=== PATIENT | male | born 1940 ===

== ENCOUNTER → 2018-11-29 | Outpatient (CLI) | payer OTHER ==
[~2018-11-29] VITALS: Ht 182.9 cm; Wt 97.8 kg
[~2018-11-29] MED LIST: AMLODIPINE BESY10 MG PO; ASPIR 8181 MG PO; FLUZONE HI180 MCG/06 IM; IBUPROFEN 200200 M1 PO; LISINOPRIL-HCT1 EAC2 PO; SIMVASTATIN40 MG PO; TYLENOL325 MG PO; VITAMIN B COMP1 EACH PO; ZYRTEC10 M5 PO
--- NOTE | ~2018-11-29 | HPC ---
[facility] [address] [place] [address] PAIN MANAGEMENT CONSULTATION Name: OLIVIER STARR [facility] [id number] Admission: 11/29/18 ������������������ Attend Phys: Saurav Beal DO Discharge: ������������������ Date of : 39 Report #: [id number] THIS REPORT FOR: //name// CC: [facility] physician/PCP Saurav Hurtado MD CHIEF COMPLAINT: Axial back pain. HISTORY OF PRESENT ILLNESS: As you know, the patient is a 78-year-old male who has had extensive surgical treatment to the lumbar spine. He has had decompressive laminectomies from L2 through L5 and a fusion from L4-L5. Despite these surgeries, the patient continues to experience axial back pain. There are some concerns the patient is suffering from facet arthropathy of the lumbar region. He does not report any neuropathic component to his symptoms. There is no radiation of symptoms beyond the axial back except for in a horizontal fashion, correlating to a distribution of the quadratus lumborum. He comes to us today with imaging prior to his L4-L5 fusion, which does show some arthritic changes in the lumbar spine at that time, moderate level at this L5-S1. He returns to discuss treatment options for his axial back pain, unresolved by Surgery. The patient indicates pain began 04/02/2018. No inciting injury or trauma. The patient indicates today pain is constant, describes the pain as aching, places current pain score 5/10, daily average of 4-5/10, worst pain has been is 8/10. The patient states that weather exacerbate symptoms. Heat and cold compresses. Rest, relaxation and anti-inflammatories tend to improve pain. He has been referred to our service to discuss treatment options for axial back pain, unresolved by multiple surgical procedures. PAST MEDICAL HISTORY: 1. Diabetes mellitus type 2. 2. Hypertension. 3. History of nephrolithiasis. 4. Degenerative joint disease. 5. History of prostate cancer. 6. Dyslipidemia. 7. Seasonal allergies. PAST SURGICAL HISTORY: 1. Cholecystectomy. 2. Prostatectomy. SOCIAL HISTORY: The patient denies tobacco, IV or illicit drug use. Admits to approximately 1 alcoholic beverage per week. He is retired. He is not working. He has been out of work force for nearly 10 years. He is not receiving workmen's compensation nor is he trying to obtain disability benefits. He is [address] [address] PAIN MANAGEMENT CONSULTATION Name: OLIVIER STARR Room #: REG Jennifer Gore#: [id number] Admission: 11/29/18 ������������������ Attend Phys: Saurav Beal DO Discharge: ������������������ Date of : 39 Report #: [id number] not in litigation in regards to pain. He is accompanied by his who is present in room today. ALLERGIES: PENICILLIN. CURRENT MEDICATIONS: Vitamin B complex 1 tab per day, ibuprofen 400 mg 3 times a day, aspirin 81 mg per day, acetaminophen 325 mg b.i.d., cetirizine 10 mg per day, amlodipine 10 mg per day, simvastatin 40 mg per day, and lisinopril/hydrochlorothiazide 20/25 mg dose 1 tab p.o. every day. IMAGING: CT lumbar spine obtained 11/09/2017 shows L1-L2 unremarkable. L2-L3 shows mild diffuse disk bulge, prominent bilateral ligamentum flavum hypertrophy, central canal is narrowed to 7 mm, bilateral foraminal encroachment and facet spurring. L3-L4, prominent spurring greater on the right. Diffuse bulging of the disk, ligamentum flavum and facet hypertrophy. Canal measures 12 mm. L5-S1 shows no focal disk protrusion, central canal is maintained, facet spurring degenerative changes at the L5-S1 level noted to be moderate. PQRS: The patient has no known osteoarthritic changes of the lumbar spine, bilateral hips and bilateral knees. No rheumatoid arthritis. He is placing pain intensity of 5/10. He is not a fall risk, has not have fallen in last few months. He is not on blood thinners. He is treated for hypertension. He is not on opioids, but he does have a low opioid addiction potential. He is placing pain impact score at approximately 35/70 indicating moderate interference of daily activities secondary to pain. PHYSICAL EXAMINATION: VITAL SIGNS: Blood pressure is 137/83, pulse 81, respiratory rate 16 and unlabored, the patient is 99% on room air, height 6 feet tall, weight 215.6 pounds, and BMI calculated 29.2. GENERAL: Well-developed, well-nourished, well-hydrated 78-year-old male appearing stated age, placing current pain score around 5/10. HEENT: Normocephalic, atraumatic. Pupils equal, round and reactive to light. Extraocular muscles are intact. Sclerae are nonicteric without injection. NEUROLOGIC: Cranial nerves 2-12 grossly intact. Speech is fluent. The patient deemed an excellent historian. LUNGS: Clear, no wheeze, rhonchi or rales. CARDIOVASCULAR: Regular. No appreciable gallop, no rub. ABDOMEN: Soft, nontender, nondistended, normoactive bowel sounds. EXTREMITIES: Show no clubbing, no cyanosis, and no edema. MUSCULOSKELETAL: Lower extremity strength appears symmetrical 5/5. There are well-healed surgical scars of the lumbar region. Palpatory tenderness is noted over the facet joints at L5-S1 bilaterally, right greater than left. Lower extremity strength is symmetrical, but deconditioned 5/5, intact to light touch from L1 through S2 dermatomes. Seated straight leg raising is negative. Supine straight leg raising is negative. Modified Gaenslen's is positive for axial low [facility] [address] [place] [address] PAIN MANAGEMENT CONSULTATION Name: OLIVIER STARR Room #: REG [facility] Rayna.#: [id number] Admission: 11/29/18 ������������������ Attend Phys: Saurav Beal DO Discharge: ������������������ Date of : 39 Report #: [id number] back pain, moderate restriction to motion. Muscle bulk and tone equal and symmetrical in lower extremities. Ankle clonus is negative. Babinski is negative. Lumbar provocation testing is all met with increasing pain. ASSESSMENT: 1. Lumbosacral spondylosis without radiculopathy. 2. Post-laminectomy syndrome. 3. Myofascial pain. 4. Chronic intractable pain. PLAN: Based on today's physical exam and history, the patient provides the description that the patient uses in regards to pain as well as location of symptoms and the provocating factors, likely source of the patient's pain is the facet joints of the lumbar region. It is not unusual for patients who have undergone a fusion at a specific level, removing the motion component of that segment, which then leads to rapid development of arthritic changes in the joints above or below that fusion. The patient is fused at the L4-L5 level, which removes a significant motion segment and then has to transfer that motion to the lower facet joints, and I believe this is the source of the patient's symptoms today. He does not show any distribution of symptoms in a classic dermatomal distribution nor does his descriptors indicate a neuropathic issue. We discussed this with the patient today. After a long discussion of the potential source of symptoms, we discussed treatment options, which are as follows: 1. We discussed physical therapy, stretching exercises and core strengthening techniques. I do feel this would be in a significant component of treatment and needs to be performed on a daily basis. We discussed medication management, escalating nonsteroidal anti-inflammatory medications for baseline pain control with the addition of a possible low dose opioids understanding that this is not a long-term therapy. We discussed intra-articular facet injections, medial branch nerve blocks and radiofrequency lesioning as a treatment course to address facet arthropathy and ultimately we discussed surgical options. After reviewing the risks and benefits of all the proposed treatment options, the patient chose to move forward with intra-articular facet injections. 2. The patient was advised risks and benefits of intra-articular facet injections. These risks include but are not necessarily limited to bleeding, bruising, infection, worsening pain, no relief of pain, also risk of temporary or permanent muscle weakness, temporary or permanent nerve damage, possible paralysis and . The patient states he understood and wished to proceed. 3. No medication changes made at today's visit. The patient will continue current medical therapy as previously prescribed. 4. We will see the patient back in followup visit in approximately 3 weeks. At that time, review the efficacy of these intra-articular facet injections to determine if repeating facet injections would be recommended or looking towards medial branch nerve blocks and radiofrequency lesioning. [address] [address] PAIN MANAGEMENT CONSULTATION Name: OLIVIER STARR Room #: REG CLI Sofía#: [id number] Admission: 11/29/18 ������������������ Attend Phys: Saurav Beal DO Discharge: ������������������ Date of : 39 Report #: [id number] 5. We wish to thank Dr. Hurtado for the referral of the patient to our clinic. We will keep you apprised of his response to treatment for facet arthropathy pain. Again, we wish to thank you for the opportunity to see the patient in consultation. DESCRIPTION OF PROCEDURE: Bilateral L5-S1 intra-articular facet injections under fluoroscopic guidance. This is the first procedure of the first series that the patient is undergoing. After obtaining written consent, the patient was taken back to the fluoroscopy suite and placed in a prone position with a pillow under the abdomen to decrease the lumbar lordosis and to facilitate needle entry into the facet joints. The skin overlying the lumbosacral area was prepped and draped in an aseptic fashion. AP and lateral fluoroscopic imaging was obtained. Optimal position of the fluoroscope occurred when the joint line was first visualized. The facet joints were identified radiographically directed adjacent to the superior articular process of the caudad vertebrae. The skin overlying the target site(s) of injection was anesthetized using 3 mL of 1% lidocaine. A 22 gauge 3.5 inch spinal needle with a bent tip was advanced towards the L5-S1 facet joint(s) on the right side under fluoroscopic guidance. The firm posterior capsule had its characteristic feel and the needle was advanced a few additional millimeters beyond the joint capsule into the joint space, but not into the articular cartilage. After the joint space was entered and aspiration was negative for heme or CSF, 0.2 mL of Omnipaque was injected demonstrating a characteristic facet arthrogram. After negative aspiration for heme or CSF, 2 mL of solution containing 2 mL of 40 mg/mL 80 mg total of triamcinolone and 2 mL of bupivacaine 0.5% was slowly injected at each of 2 facet(s). The needle(s) was then removed. There were no apparent complications. The patient tolerated the procedure well and was carefully escorted to the recovery room in stable condition. The VAS was 5/10 before the procedure and 0/10 ten minutes after the procedure. After meeting discharge criteria, the patient was discharged home. ��������������������������������������������� ���������������������������������������� By: ��������������������������������������������� 0823 [id number] Saurav Beal DO /nt
[2018-11-29 13:05] VITALS: BP 137/83
--- NOTE | 2018-11-29 13:21 | NUR ---
Pain Clinic Assessment: 1. History of Osteoarthritis: History of Rheumatoid Arthritis: 2. Height: 6 ft. 0 in. 182.9 cm. Weight: 215.6 lb. oz. 97.796 kg. Patient's BMI: 29.2 3. Vital Signs: BP: 137/83 Pulse: 81 Resp: 16 Temp: 02 Sat: 99 ECG Mon: 4. Pain Intensity: 5 5. Fall Risk: Dizziness: N Needs help standing or walking: N Fallen in the last 3 months: N Fall risk comments: 6. Patient on Blood Thinner: None 7. History of Hypertension: Y 8. Opioid Therapy greater than 6 weeks: N Opiate Contract Signed: 9. Risk Assessment Tool Provided: LOW 10. Functional Assessment Tool: 11. Recreational Drug Use: Never Drug Type: Tobacco Use: Never Smoker Tobacco Type: Amount or Packs/day: How Many Years: Alcohol Use: Yes Frequency: Weekly Quant: 0-1
== END ==
LOC: PAIN 07:11
DX: M47.817 Spondylosis without myelopathy or radiculopathy, lumbosacral region (principal); M96.3 Postlaminectomy kyphosis; M79.10 Myalgia, unspecified site; G89.29 Other chronic pain; E11.9 Type 2 diabetes mellitus without complications; I10 Essential (primary) hypertension; M19.90 Unspecified osteoarthritis, unspecified site; E78.5 Hyperlipidemia, unspecified; Z90.49 Acquired absence of other specified parts of digestive tract; Z98.890 Other specified postprocedural states; Z88.0 Allergy status to penicillin; Z79.899 Other long term (current) drug therapy; Z79.82 Long term (current) use of aspirin

== ENCOUNTER → 2019-02-21 | Outpatient (CLI) | payer OTHER ==
[~2019-02-21] VITALS: Ht 182.9 cm; Wt 98.3 kg
[~2019-02-21] MED LIST changes: +CBD OIL; +NABUMETONE 500500 M2 PO
--- NOTE | ~2019-02-21 | HPC ---
[facility] [address] [place] [address] PAIN MANAGEMENT CONSULTATION Name: OLIVIER STARR [id number] Admission: 02/21/19 ������������������ Attend Phys: Saurav Beal DO Discharge: ������������������ Date of : 39 Report #: [id number] THIS REPORT FOR: //name// CC: Peyman Hurtado MD DATE OF SERVICE: 02/21/2019 CHIEF COMPLAINT: Axial back pain. HISTORY OF PRESENT ILLNESS: As you know, the patient is a 78-year-old male who has had extensive surgical treatment of the lumbar spine. He has undergone decompressive laminectomies from L2-L5 and fusion of L4-L5. Despite these surgeries, he continues to experience axial back pain. The patient underwent intra-articular facet injections at our last visit, which he reports provided 100% improvement in overall pain lasting for nearly 6 weeks. Unfortunately, his symptoms have begun to return. He is now placing pain score anywhere from 5-6/10, states pain is constant and aching sensation, exacerbated with weather and walking and standing, improves with heat, sitting, repositioning, and previous intra-articular facet injections. He returns today in followup visit to discuss treatment options. ALLERGIES: PENICILLIN. CURRENT MEDICATIONS: Vitamin B complex, ibuprofen, aspirin, acetaminophen, cetirizine, amlodipine, simvastatin, and lisinopril/hydrochlorothiazide. SOCIAL HISTORY: The patient denies tobacco, IV, or illicit drug use. Admits to approximately 1 alcoholic beverage per week. He is retired. He is not working. He has been out of work force for about 10 years, accompanied by his present in room today. IMAGING: No new imaging available. PQRS: The patient has known arthritic changes of the lumbar spine, bilateral hips and knees. No rheumatoid arthritis. He is placing pain intensity at 5-6/10. He is not a fall risk, has not had a fall in the last 3 months. He is not on blood thinners. He has a history of hypertension on chronic opioids. He has a low opiate addiction potential based on our testing protocol. He is placing pain impact score 35/70, moderate interference of daily activities secondary to pain. PHYSICAL EXAMINATION: VITAL SIGNS: Blood pressure 136/76, pulse 85, respiratory rate 16 and unlabored. The patient is 100% on room air. Height 6 feet tall, weight 216.[address] [address] PAIN MANAGEMENT CONSULTATION Name: OLIVIER STARR Kim Room #: REG [facility]#: [id number] Admission: 02/21/19 ������������������ Attend Phys: Saurav Beal DO Discharge: ������������������ Date of : 39 Report #: [id number] pounds, BMI calculated 29.4. GENERAL: Well-developed, well-nourished, well-hydrated 78-year-old male appearing stated age, placing current pain score 5-6/10. HEENT: Normocephalic, atraumatic. Pupils equal, round, reactive to light. Extraocular muscles are intact. EXTREMITIES: Show no clubbing, no cyanosis, and no edema. MUSCULOSKELETAL: Lower extremity strength remains symmetrical 5/5. Well-healed surgical scars over the lumbar spine. Palpatory tenderness is again noted over the facet joints at the L5-S1 level. He is intact to light touch from L1 through S2 dermatomes. Seated straight leg raising negative. Supine straight leg raising negative. Modified Gaenslen's positive for axial low back pain. There is moderate restriction of motion and pain generation with maneuvers such as lateral flexion and rotation. ASSESSMENT: 1. Lumbosacral spondylosis without radiculopathy. 2. Post-laminectomy syndrome. 3. Myofascial pain. 4. Chronic intractable pain. PLAN: 1. The patient has returned today in followup visit with recurrence of axial back pain. He reported near 100% improvement in overall pain lasting for 5-6 weeks with intra-articular facet injections. He returns to discuss options for treatment today. He and I have had a very long discussion about the treatment options, both long-term and short-term benefits and options, the following was discussed with the patient today. 2. We discussed physical therapy, stretching exercise, core strengthening, which is the gold standard treatment for facet arthropathy pain. The patient has had a fusion at the L4-L5 level, which has set him up for more rapid development of arthritic changes L5-S1, which has been noted on imaging. Physical therapy, stretching exercise, core strengthening will stabilize the axial back and improve mechanics and likely reduce pain. He would need to remain with this physical exercise for the foreseeable future. 3. We also discussed medication management adding a consistent nonsteroidal anti-inflammatory for baseline pain control. This will improve overall pain, but will not resolve pain entirely. I do not feel that a full resolution of symptoms will be possible given the extent of surgery the patient has undergone and the changes that have occurred. Medications will be beneficial, but will not provide 100% improvement in symptoms. We discussed repeating intra-articular facet injections, also medial branch nerve blocks, radiofrequency lesioning. We also discussed surgical options to stabilize the area by extending the fusion to the S1 level. After reviewing the risks and benefits of all proposed treatment options, the patient chose to begin with medication management and physical activity. 4. We have offered to send the patient for formalized physical therapy, [address] [place] [address] PAIN MANAGEMENT CONSULTATION Name: OLIVIER STARR Room #: REG [facility].#: [id number] Admission: 02/21/19 ������������������ Attend Phys: Saurav Beal DO Discharge: ������������������ Date of : 39 Report #: [id number] to trial home process initially. If this is unsuccessful, then he would be considering a possible formalized physical therapy program. He will start home program today and continue this activity for foreseeable future. 5. We have given the patient a prescription of nabumetone 500 mg dose 1 tab p.o. t.i.d. I have given the patient #90 tablets, releasing today, 4 weeks from today, 8 weeks from today, 3 months' worth of medication. The patient was advised to watch for dyspepsia, worsening blood pressure, lower extremity edema with use of medication, if he notes any side effects, discontinue immediately, call for further instructions. 6. We will see the patient back in followup visit in approximately 3 weeks. If no improvement in symptoms or he continues to experience axial back pain, we would consider intra-articular facet injections, possible medial branch nerve blocks and radiofrequency lesioning. ��������������������������������������������� ���������������������������������������� By: ��������������������������������������������� [id number] 1019 Saurav Beal DO /nt
[2019-02-21 13:51] VITALS: BP 136/76
--- NOTE | 2019-02-21 13:59 | NUR ---
Pain Clinic Assessment: 1. History of Osteoarthritis: HIPS History of Rheumatoid Arthritis: Not Applicable 2. Height: 6 ft. 0 in. 182.9 cm. Weight: 216.8 lb. oz. 98.340 kg. Patient's BMI: 29.4 3. Vital Signs: BP: 136/76 Pulse: 85 Resp: 16 Temp: 02 Sat: 100 ECG Mon: 4. Pain Intensity: 5-6 WITH WALKING 5. Fall Risk: Dizziness: N Needs help standing or walking: N Fallen in the last 3 months: N Fall risk comments: 6. Patient on Blood Thinner: None 7. History of Hypertension: Y 8. Opioid Therapy greater than 6 weeks: N Opiate Contract Signed: 9. Risk Assessment Tool Provided: LOW 10. Functional Assessment Tool: 35 11. Recreational Drug Use: Never Drug Type: Tobacco Use: Never Smoker Tobacco Type: Amount or Packs/day: How Many Years: Alcohol Use: Yes Frequency: Quant:
== END ==
LOC: PAIN 07:02
DX: M47.817 Spondylosis without myelopathy or radiculopathy, lumbosacral region (principal); M43.26 Fusion of spine, lumbar region; M96.1 Postlaminectomy syndrome, not elsewhere classified; I10 Essential (primary) hypertension; M79.18 Myalgia, other site; G89.4 Chronic pain syndrome; Z88.0 Allergy status to penicillin; Z79.899 Other long term (current) drug therapy

== ENCOUNTER → 2019-05-16 | Outpatient (CLI) | payer OTHER ==
[~2019-05-16] VITALS: Ht 182.9 cm; Wt 101.4 kg
[~2019-05-16] MED LIST changes: +TRAMADOL 50 MG50 MG PO
[2019-05-16 09:46] VITALS: BP 139/77
--- NOTE | 2019-05-16 09:58 | NUR ---
Pain Clinic Assessment: 1. History of Osteoarthritis: HIPS History of Rheumatoid Arthritis: Not Applicable 2. Height: 6 ft. 0 in. 182.9 cm. Weight: 223.6 lb. oz. 101.424 kg. Patient's BMI: 30.3 3. Vital Signs: BP: 139/77 Pulse: 93 Resp: 16 Temp: 02 Sat: 100 ECG Mon: 4. Pain Intensity: 8 5. Fall Risk: Dizziness: N Needs help standing or walking: N Fallen in the last 3 months: N Fall risk comments: 6. Patient on Blood Thinner: None 7. History of Hypertension: Y 8. Opioid Therapy greater than 6 weeks: N Opiate Contract Signed: 9. Risk Assessment Tool Provided: LOW 10. Functional Assessment Tool: 35/ 11. Recreational Drug Use: Never Drug Type: Tobacco Use: Never Smoker Tobacco Type: Amount or Packs/day: How Many Years: Alcohol Use: Yes Frequency: Monthly Quant: 1
--- NOTE | 2019-05-23 08:01 | HPC ---
[facility] [place] [address] PAIN MANAGEMENT CONSULTATION Name: MATTYOLIVIER D Room #: REG [facility].#: [id number] Admission: 05/16/19 Attend Phys: Saurav Beal DO Discharge: Date of : 39 Report #: [id number] THIS REPORT FOR: //name// CC: [facility] physician/PCP Peyman Hurtado MD DATE OF SERVICE: 05/16/2019 CHIEF COMPLAINT: Low back pain. HISTORY OF PRESENT ILLNESS: As you know, the patient is a 78-year-old male who has had extensive surgical treatment for the lumbar spine. He has undergone decompressive laminectomies from L2 through L5 and fusion of L4-5 with instrumentation. Despite these surgeries, he continues to experience pain. He is placing pain today at 8/10. States his pain is constant and aching in sensation, exacerbated with weather and walking, improves with heat and cold compresses, sitting and the previous epidural injection, which gave 80% improvement in overall pain for nearly 2 months. He returns today in followup visit to address low back symptoms. ALLERGIES: PENICILLIN. CURRENT MEDICATIONS: Nabumetone, multivitamin, ibuprofen, aspirin, acetaminophen, Zyrtec, amlodipine, simvastatin, lisinopril, hydrochlorothiazide. SOCIAL HISTORY: The patient denies tobacco, IV or illicit drug use. Admits to occasional alcohol beverage. He is retired. He is not working. He is accompanied by his present in room today. IMAGING: No new imaging available. PQRS: The patient has known arthritic changes of the lumbar spine, bilateral hips and knees. No rheumatoid arthritis. Pain intensity today is 8/10. He is not a fall risk; he has not had a fall in last 3 months. He is not on blood thinners. He is treated for hypertension. He is not on chronic opioids. He has a low opiate addiction potential. Pain impact score 35/70, moderate interference of daily activities secondary to pain. PHYSICAL EXAMINATION: VITAL SIGNS: Blood pressure 139/77, pulse 93, respiratory rate 16 and unlabored. The patient is 100% on room air, height 6 feet tall, weight 223.6 pounds, BMI calculated 30.3. GENERAL: Well-developed, well-nourished, well-hydrated 78-year-old male appearing stated age, pain is rated at 8/10. [address] [address] PAIN MANAGEMENT CONSULTATION Name: MATTYOLIVIER Kim Room #: REG [facility]#: [id number] Admission: 05/16/19 Attend Phys: Saurav Beal DO Discharge: Date of : 39 Report #: [id number] HEENT: Normocephalic, atraumatic. Pupils are round and reactive. EXTREMITIES: Show no clubbing, no cyanosis, no edema. MUSCULOSKELETAL: Lower extremity strength is 5/5. Palpatory tenderness is again noted over the paraspinal musculature of lower lumbar spine. Seated straight leg raising negative. Supine straight leg raising mildly positive. Modified Gaenslen's positive for axial low back pain. ASSESSMENT: 1. Chronic lumbar radiculopathy. 2. Failed lumbar spine surgery. 3. Lumbosacral spondylosis. 4. Post-laminectomy syndrome. 5. Chronic intractable pain. PLAN: 1. The patient returns today in followup visit having noted good efficacy with previous injection. Unfortunately, he is having pain now that radiates from the low back all the way down the legs. We have decided to have the patient undergo an epidural injection under fluoroscopic guidance in hopes of improving pain. He does have a significant component of facet arthropathy pain that we will have to address in the future, but at this time the low back symptoms with radiation down the legs is the most important and problematic symptoms the patient is experiencing. He has been advised risks and benefits of an epidural injection, states he understood and wished to proceed. 2. We will continue the patient on nabumetone 500 mg dose 1 tab p.o. t.i.d.; I have given the patient #90 tablets, releasing today, 4 weeks from today, 8 weeks from today, 3 months' worth of medication. The patient was advised to watch for dyspepsia, worsening of blood pressure, lower extremity edema. If he notes these side effects, discontinue immediately. 3. We will start the patient on tramadol 50 mg dose 1 tab p.o. q.4 hours p.r.n. for pain. I have given the patient #30 tablets. He can use these as needed for pain control. He is not to rely on the medication prophylactically. 4. We will see the patient back in followup visit on an as needed basis. DESCRIPTION OF PROCEDURE: L5-S1 intralaminar epidural steroid injection under fluoroscopic guidance. After obtaining written consent, the patient was taken back to fluoroscopy suite, placed in prone position with pillow under abdomen to decrease lumbar lordosis. Skin overlying lumbosacral area then prepped and draped in aseptic fashion. The L5-S1 intervertebral spaces were identified by AP fluoroscopy. Skin and subcutaneous tissue overlying target site of injection anesthetized with 3 mL of 1% lidocaine. A 20-gauge 3-1/2 inch Tuohy needle advanced under fluoroscopic guidance towards the epidural space using a parasagittal approach. Epidural space identified [address] [address] PAIN MANAGEMENT CONSULTATION Name: OLIVIER STARR Room #: [facility]#: [id number] Admission: 05/16/19 Attend Phys: Saurav Beal DO Discharge: Date of : 39 Report #: [id number] using loss of resistance to air technique. After negative aspiration for heme or cerebrospinal fluid, 1 mL of Omnipaque injected. Lumbar epidurogram confirmed using both AP and lateral fluoroscopy. After negative aspiration for heme or cerebrospinal fluid, 5 mL of a solution containing 2 mL 40 mg per mL, 80 mg total triamcinolone along with 3 mL lidocaine 1% injected slowly. Needle then retracted skilled nursing, flushed with 1 mL of 1% lidocaine and then removed. Sterile bandage placed over injection site. No new motor deficits present in the lower extremities following procedure. The patient tolerated procedure well, carefully escorted to recovery room in stable condition. No apparent complications. After meeting discharge criteria, the patient discharged home. <ELECTRONICALLY SIGNED> By: Saurav Beal DO 05/23/19 0801 [id number] Saurav Beal DO /nt
== END | disposition home or self-care (01) ==
LOC: PAIN
DX: M54.5 Low back pain (principal); M47.27 Other spondylosis with radiculopathy, lumbosacral region; M96.1 Postlaminectomy syndrome, not elsewhere classified; G89.29 Other chronic pain; M19.90 Unspecified osteoarthritis, unspecified site; I10 Essential (primary) hypertension; Z79.899 Other long term (current) drug therapy; Z88.0 Allergy status to penicillin; Z98.890 Other specified postprocedural states; Z79.82 Long term (current) use of aspirin

== ENCOUNTER → 2019-07-18 | Outpatient (CLI) | payer OTHER ==
[~2019-07-18] VITALS: Ht 182.9 cm; Wt 101.7 kg
--- NOTE | ~2019-07-18 | HPC ---
[facility] [place] [address] PAIN MANAGEMENT CONSULTATION Name: MATTYOLIVIER Kim Room #: REG [facility]#: [id number] Admission: 07/18/19 Attend Phys: Saurav Beal DO Discharge: Date of : 39 Report #: [id number] THIS REPORT FOR: //name// CC: Peyman Hurtado MD DATE OF SERVICE: 07/18/2019 REFERRING PHYSICIAN: Cezar Hurtado MD. CHIEF COMPLAINT: Low back pain. HISTORY OF PRESENT ILLNESS: As you know, the patient is a 78-year-old male, who has had a surgical decompression of the lumbar spine with the instrumentation that improved the patient's overall pain, but unfortunately again symptoms began to return in distributions lower than his fusion. He was sent to our clinic by his neurosurgeon to undergo epidural injections under fluoroscopic guidance. He was seen in consultation in October, returning again in January for medication management. As of 05/16/2019, the patient underwent the first in the series of the lumbar epidural injections. This first injection gave the patient improvement in his symptoms of 80%, lasting for 5 weeks until he started doing some heavy lifting and moving objects that he know he was not supposed to be involved in. He is now placing pain score of 5/10. He states the pain is constant and aching and sensation is exacerbated with walking, lifting, and weather and improves with heat, cold compresses, sitting, and previous epidural injection. He returns today to undergo next in the series of epidural injections under fluoroscopic guidance. ALLERGIES: PENICILLIN. CURRENT MEDICATIONS: See chart. SOCIAL HISTORY: The patient denies tobacco, IV or illicit drug use. Admits to occasional alcohol beverage. He is retired. He is unaccompanied today. IMAGING: No new imaging available. PQRS: The patient has arthritic changes of the lumbar spine, bilateral hips, and knees. No rheumatoid arthritis. He is placing pain intensity 5/10, not a fall risk, has not had a fall in the last 3 months. He is on medications for hypertension, but is not on any blood thinners. He is on no long-term opioids, but has a low opioid addiction potential based on our assessment tool. Pain impact score at 35/70, moderate interference of daily activities secondary to pain. [address] [address] PAIN MANAGEMENT CONSULTATION Name: OLIVIER STARR Room #: REG [facility]#: [id number] Admission: 07/18/19 Attend Phys: Saurav Beal DO Discharge: Date of : 39 Report #: [id number] PHYSICAL EXAMINATION: VITAL SIGNS: Blood pressure 133/74, pulse 96, and respiratory rate 14 and unlabored. The patient is 98% on the room air. Height 6 feet tall, weight 224.2 pounds, and BMI calculated 30.4. GENERAL: Well-developed, well-nourished, and well-hydrated 78-year-old male appearing stated age, pain is rated today 5/10. HEENT: He is normocephalic and atraumatic. Pupils are equal, round, and reactive to light. EXTREMITIES: Show no clubbing, no cyanosis, and no edema. MUSCULOSKELETAL: Lower extremity strength appears symmetrical again today 5/5. Palpatory tenderness is again noted over the paraspinal musculature. No spinous process tenderness. Well-healed surgical scars. Seated straight leg raising is negative. Supine straight leg raising remains mildly positive at about 60 degree angle. Modified Gaenslen's positive for axial low back pain. Gait appears normal. Stance is normal with loss of lordotic curvature. ASSESSMENT: 1. Chronic lumbar radiculopathy. 2. Failed lumbar spine surgery. 3. Lumbosacral spondylosis with radiculopathy. 4. Post-laminectomy syndrome. 5. Chronic intractable pain. PLAN: 1. The patient returns today in followup visit having noted excellent benefit with the previous epidural injection. In fact, the patient reports improvement of symptoms of about 80%, lasting for 5 weeks. Unfortunately, the patient was involved in some heavy lifting that he knows he should not have been involved with and that exacerbated his symptoms. He returns to undergo a lumbar epidural injection under fluoroscopic guidance to address this recurrent pain. We have cautioned the patient about lifting and bending, as this is not recommended with his instrumented fusion and the findings of his recent imaging, leading to lumbar radiculopathy. We recommend strongly the patient find other ways to handle heavy objects including hiring people to help do the labor. 2. No medication changes made at today's visit. The patient will continue current medical therapy as prior prescribed. 3. We will see the patient back in followup visit on an as needed basis for next in the series of epidural injections. PROCEDURE NOTE DESCRIPTION OF PROCEDURE: L5-S1 INTERLAMINAR EPIDURAL STEROID INJECTION UNDER FLUOROSCOPIC GUIDANCE: This is the second procedure of the first series that the patient is undergoing. After obtaining written consent, the patient was taken back to the fluoroscopy [address] [address] PAIN MANAGEMENT CONSULTATION Name: OLIVIER STARR Room #: REG [facility]#: [id number] Admission: 07/18/19 Attend Phys: Saurav PerezWilliam EmigdioDO Discharge: Date of : 39 Report #: [id number] suite, placed in a prone position with pillow under the abdomen to decrease lumbar lordosis. The skin overlying the lumbosacral area was then prepped and draped in aseptic fashion. The L5-S1 vertebral interspace was then identified by AP fluoroscopy. The skin and subcutaneous tissue overlying the target site of injection was anesthetized with 3 mL 1% lidocaine. A 20-gauge, 3-1/2 inch Tuohy needle was then advanced under fluoroscopic guidance towards the epidural space using a midline approach. The epidural space was identified using loss of resistance to air technique. After negative aspiration for heme or cerebrospinal fluid, a total of 1 mL of Omnipaque was injected. A lumbar epidurogram was confirmed using both AP and lateral fluoroscopy. After negative aspiration for heme or cerebrospinal fluid, 5 mL of a solution containing 2 mL of 40 mg per mL 80 mg total triamcinolone along with 3 mL of lidocaine 1% was injected in increments. Contrast spread was noted post-epidural space. The needle was then retracted approximately half way and needle tract flushed with 1 mL of 1% lidocaine. Needle was then removed. There were no apparent sensory or motor deficits in the lower extremity following the procedure. A sterile bandage was placed over the injection site. The heart rate, pulse, oximetry and blood pressure were continuously monitored after the procedure. There were no apparent complications. The patient tolerated the procedure well and was carefully escorted to the recovery room in stable condition. There were no apparent complications. After meeting discharge criteria, the patient was then discharged home. By: [id number] 2100 Saurav Beal DO /ana maria
[2019-07-18 09:17] VITALS: BP 133/74
--- NOTE | 2019-07-18 09:44 | NUR ---
Document wound assessment on appropriate Wound Pressure, Monitor intervention!
--- NOTE | 2019-07-18 09:44 | NUR ---
Pain Clinic Assessment: 1. History of Osteoarthritis: HIPS BACK History of Rheumatoid Arthritis: Not Applicable 2. Height: 6 ft. 0 in. 182.9 cm. Weight: 224.2 lb. oz. 101.697 kg. Patient's BMI: 30.4 3. Vital Signs: BP: 133/74 Pulse: 96 Resp: 14 Temp: 02 Sat: 98 ECG Mon: 4. Pain Intensity: 5 5. Fall Risk: Dizziness: N Needs help standing or walking: N Fallen in the last 3 months: N Fall risk comments: 6. Patient on Blood Thinner: None 7. History of Hypertension: Y 8. Opioid Therapy greater than 6 weeks: N Opiate Contract Signed: 9. Risk Assessment Tool Provided: LOW 10. Functional Assessment Tool: 35/ 11. Recreational Drug Use: Never Drug Type: Tobacco Use: Never Smoker Tobacco Type: Amount or Packs/day: How Many Years: Alcohol Use: Yes Frequency: Monthly Quant: 1
== END | disposition home or self-care (01) ==
LOC: PAIN 08:13
DX: M47.27 Other spondylosis with radiculopathy, lumbosacral region (principal); G89.29 Other chronic pain; M96.1 Postlaminectomy syndrome, not elsewhere classified; M19.90 Unspecified osteoarthritis, unspecified site; Z98.890 Other specified postprocedural states; Z79.899 Other long term (current) drug therapy; Z79.82 Long term (current) use of aspirin; Z88.0 Allergy status to penicillin

== ENCOUNTER → 2019-12-06 | Outpatient (CLI) | payer OTHER ==
[~2019-12-06] VITALS: Ht 182.9 cm; Wt 97.5 kg
[~2019-12-06] MED LIST changes: +UNICOMPLEX M TA1 TA1 PO
--- NOTE | ~2019-12-06 | HPC ---
[facility] [place] [address] PAIN MANAGEMENT CONSULTATION Name: OLIVIER STARR Kim Room #: REG [facility].#: [id number] Admission: 12/06/19 Attend Phys: Saurav Beal DO Discharge: Date of : 39 Report #: [id number] THIS REPORT FOR: cc: Peyman Hill MD, Herbert M. MD Johnson, James E. DO ~ CC: Peyman Hurtado MD DATE OF SERVICE: 12/06/2019 REFERRING PHYSICIAN: Peyman Hill MD CHIEF COMPLAINT: Low back pain, right lower extremity pain with paresthesias. HISTORY OF PRESENT ILLNESS: As you know, the patient is a very pleasant 79-year-old male who returns today in followup visit to undergo next in the series of epidural injections under fluoroscopic guidance. The patient reports the previous epidural injection gave about 90% improvement in overall pain lasting for just near 3 months. Unfortunately, he has had a recurrence of symptoms. He returns today in followup visit to undergo lumbar epidural injection. He is denying any injury or trauma that may have led to symptom development. The patient is very pleased with response to the previous epidural injection. Today, the patient is reporting pain is constant and aching in sensation, exacerbated with weather, walking and standing from a seated position, which is typical for him. He returns for the next in the series of epidural injections in hopes of building on success of previous intervention. ALLERGIES: PENICILLIN. CURRENT MEDICATIONS: See chart. SOCIAL HISTORY: The patient denies tobacco, IV or illicit drug use. Admits to occasional alcohol beverage. He is retired. He is accompanied by his , present in room today. IMAGING STUDIES: No new imaging available. PQRS: The patient has known arthritic changes of the lumbar spine, bilateral hips and knees. No rheumatoid arthritis. He is placing pain intensity today about 8/10, not a fall risk nor has he had a fall in last 3 months, though he does use a cane for ambulation and balance. He is not on blood thinners, but is treated for hypertension. He is not on opioids and has a low opioid addiction potential based on our assessment tool. Pain impact score 35/70, moderate [address] [address] PAIN MANAGEMENT CONSULTATION Name: OLIVIER STARR Room #: REG [facility]#: [id number] Admission: 12/06/19 Attend Phys: Saurav Beal DO Discharge: Date of : 39 Report #: [id number] interference of daily activities secondary to pain. PHYSICAL EXAMINATION: VITAL SIGNS: Blood pressure 125/77, pulse 106, respiratory rate 16 and unlabored. The patient is 98% on room air. Height 6 feet tall, weight 215 pounds, BMI calculated 29.2. GENERAL: Well-developed, well-nourished, well-hydrated 79-year-old male, appearing stated age. He is placing current pain score at 8/10. HEENT: Normocephalic and atraumatic. Pupils are equal, round, and reactive to light. Extraocular muscles are intact. Speech fluent. He is an excellent historian. EXTREMITIES: Show no clubbing, no cyanosis, no edema. MUSCULOSKELETAL: Lower extremity strength appears symmetrical 5/5. Slight giveaway strength noted with hip flexion, knee extension on the right when compared to left. Muscle bulk and tone is symmetrical comparing left lower extremity to right. Seated straight leg raising positive on the right. Supine straight leg raising positive on the right. Dejan's test is negative. Gait is antalgic favoring right lower extremity over left. Stance is forward flexed with loss of lordotic curvature. Well-healed surgical scars. ASSESSMENT: 1. Symptomatic lumbar radiculopathy. 2. Failed lumbar spine surgery. 3. Lumbosacral spondylosis with radiculopathy. 4. Post-laminectomy syndrome. 5. Chronic intractable pain. PLAN: 1. The patient returns today in followup visit requesting to undergo lumbar epidural injection under fluoroscopic guidance. He reports near 90% improvement in overall pain with the epidural injection provided at our last visit in July. He is very pleased with response to this epidural injection, returning today to undergo next in the series to build on that success. He has been advised risks and benefits of the procedure. These risks include but are not necessarily limited to bleeding, bruising, infection, worsening pain, no relief of pain, also risk of temporary or permanent muscle weakness, temporary or permanent nerve damage, possible paralysis and . The patient states understood and wished to proceed. The patient was also advised of the risks, he may note in regard to the coronavirus. Literature has indicated that patients who receive steroids can have a reduction in immune response and thus may be a greater risk for contraction of the COVID-19 virus. Also with the reduction in an immune response those individuals have. They have received steroids with symptoms of COVID have noted exacerbation of symptoms. The patient states he understands his risks and wishes to proceed. [facility] [address] [place] [address] PAIN MANAGEMENT CONSULTATION Name: OLIVIER STARR Room #: REG [facility]#: [id number] Admission: 12/06/19 Attend Phys: Saurav Beal DO Discharge: Date of : 39 Report #: [id number] 2. No medication changes made at today's visit. The patient will continue current medical therapy as previously prescribed. 3 We will see the patient back in followup visit on an as needed basis for possible next in the series of epidural injections. We are pleased to see the patient has done well with previous epidural injection and hopeful to see similar improvement today. PROCEDURE NOTE PROCEDURE: L5-S1 right paramedian epidural steroid injection under fluoroscopic guidance. DESCRIPTION OF PROCEDURE: After obtaining written consent, the patient was taken back to fluoroscopy suite, placed in prone position with pillow under abdomen to decrease lumbar lordosis. Skin overlying the lumbosacral area was then prepped and draped in aseptic fashion. The L5-S1 vertebral interspace identified by AP fluoroscopy. Skin and subcutaneous tissue overlying target site injection anesthetized with 2 mL of 1% lidocaine. A 20-gauge 3.5-inch Tuohy needle advanced under fluoroscopic guidance towards the epidural space using right paramedian approach. Epidural space identified using loss of resistance to air technique. After negative aspiration for heme or cerebrospinal fluid, 1 mL of Omnipaque injected. Lumbar epidurogram confirmed using both AP and lateral fluoroscopy. After negative aspiration for heme or cerebrospinal fluid, 5 mL of a solution containing 2 mL 40 mg per mL, 80 mg total triamcinolone along with 3 mL of lidocaine 1% injected slowly. Needle then retracted approximately half way, flushed with 1 mL of 1% lidocaine and then removed. Sterile bandage placed over injection site. No new motor deficits present in lower extremity following procedure. The patient tolerated the procedure well, carefully escorted to recovery room in stable condition. No apparent complications. After meeting discharge criteria, the patient discharged home. By: [id number] Saurav Beal, /nt
[2019-12-06 12:30] VITALS: BP 125/77
--- NOTE | 2019-12-06 12:42 | NUR ---
Pain Clinic Assessment: 1. History of Osteoarthritis: HIPS BACK History of Rheumatoid Arthritis: Not Applicable 2. Height: 6 ft. 0 in. 182.9 cm. Weight: 215.0 lb. oz. 97.524 kg. Patient's BMI: 29.2 3. Vital Signs: BP: 125/77 Pulse: 106 Resp: 16 Temp: 02 Sat: 98 ECG Mon: 4. Pain Intensity: 8 5. Fall Risk: Dizziness: N Needs help standing or walking: N Fallen in the last 3 months: N Fall risk comments: 6. Patient on Blood Thinner: None 7. History of Hypertension: Y 8. Opioid Therapy greater than 6 weeks: N Opiate Contract Signed: 9. Risk Assessment Tool Provided: LOW 10. Functional Assessment Tool: 35/ 11. Recreational Drug Use: Never Drug Type: Tobacco Use: Never Smoker Tobacco Type: Amount or Packs/day: How Many Years: Alcohol Use: Yes Frequency: Quant:
== END | disposition home or self-care (01) ==
LOC: PAIN 06:46
DX: M47.27 Other spondylosis with radiculopathy, lumbosacral region (principal); M96.1 Postlaminectomy syndrome, not elsewhere classified; G89.29 Other chronic pain; I10 Essential (primary) hypertension; Z98.890 Other specified postprocedural states; Z79.899 Other long term (current) drug therapy; Z88.0 Allergy status to penicillin

== ENCOUNTER → 2020-02-14 | Outpatient (CLI) | payer OTHER ==
[~2020-02-14] VITALS: Ht 182.9 cm; Wt 92.5 kg
--- NOTE | ~2020-02-14 | HPC ---
[facility] [place] [address] PAIN MANAGEMENT CONSULTATION Name: OLIVIER STARR Kim Room #: REG SISSY ColinWilliamNir.#: [id number] Admission: 02/14/20 Attend Phys: Saurav Beal DO Discharge: Date of : 38 Report #: [id number] THIS REPORT FOR: cc: Peyman Hill MD, Herbert M. MD Johnson, James E. DO ~ CC: PEYMAN Beal DATE OF SERVICE: 02/14/2020 REFERRING PHYSICIAN: Peyman Hill M.D. CHIEF COMPLAINT: Low back pain, right lower extremity pain with paresthesias. HISTORY OF PRESENT ILLNESS: As you know, the patient is a very pleasant 79-year-old male who returns today in followup visit requesting to undergo next in the series of lumbar epidural injections. As you are aware, the patient suffers from chronic lumbar radiculopathy, status post posterior fusion with instrumentation at the L4-L5 level. He continues to experience numbness and tingling and pain radiating down the right leg. He indicates that previous epidural injection gave 80% improvement in overall pain lasting for nearly 6 weeks. Unfortunately, his symptoms have begun to return. He returns today in followup visit to undergo next in the series of epidural injections. He reports pain today at 5-6/10, exacerbated with walking and standing, improves with repositioning and epidural injections. ALLERGIES: PENICILLIN. CURRENT MEDICATIONS: See chart. SOCIAL HISTORY: The patient denies tobacco, IV or illicit drug use. Admits to occasional alcohol beverage. He is retired, retired years ago. He is unaccompanied today. IMAGING: No new imaging available. PQRS: The patient has arthritic changes of the lumbar spine, bilateral hips and knees. No rheumatoid arthritis. He is placing pain intensity today at around 5-6/10. He is not a fall risk nor has he had a fall in last 3 months. He is not on blood thinners, but is treated for hypertension. He is not on chronic opioids and has a low opiate addiction potential. Pain impact is indicated at 35/70, moderate interference of daily activities secondary to pain. PHYSICAL EXAMINATION: [facility] [address] [place] [address] PAIN MANAGEMENT CONSULTATION Name: OLIVIER STARR Kim Room #: [facility]#: [id number] Admission: 02/14/20 Attend Phys: Sauarv Beal DO Discharge: Date of : 38 Report #: [id number] VITAL SIGNS: Blood pressure 126/74, pulse 98, respiratory rate 18 and unlabored. The patient is 99% on room air, height 6 feet tall, weight 204 pounds, BMI calculated 27.7. GENERAL: Well-developed, well-nourished, well-hydrated 79-year-old male, appearing stated age, pain is rated at 5-6/10. HEENT: Normocephalic, atraumatic. Pupils equal, round and reactive. EXTREMITIES: Show no clubbing, no cyanosis, no edema. MUSCULOSKELETAL: Lower extremity strength is symmetrical 5/5, intact to light touch from L1 through S2 dermatomes. Seated straight leg raising negative. Supine straight leg raising positive on the right. Dejan's test negative. Gait is antalgic favoring right lower extremity. Muscle bulk and tone appears symmetrical in comparing lower extremities. ASSESSMENT: 1. Symptomatic lumbar radiculopathy. 2. Failed lumbar spine surgery. 3. Lumbosacral spondylosis with radiculopathy. 4. Post-laminectomy syndrome. 5. Chronic intractable pain. PLAN: 1. The patient returns today in followup visit to undergo lumbar epidural injection under fluoroscopic guidance. He has noted about 80% improvement in overall pain with previous epidural injection. Unfortunately, his symptoms have begun to return. There has been no inciting injury or trauma. He returns today in followup visit requesting next in the series of epidural injections to build on success of previous intervention. The patient was advised risks and benefits of the procedure, states understood and wished to proceed. 2. No medication changes made at today's visit. The patient will continue current medical therapy as previously prescribed. 3. We will see the patient back in followup visit on an as needed basis for possible next in the series of lumbar epidural injections. PROCEDURE NOTE DESCRIPTION OF PROCEDURE: L5-S1 right paramedian epidural steroid injection under fluoroscopic guidance. After obtaining written consent, the patient was taken back to fluoroscopy suite, placed in prone position with pillow under abdomen to decrease lumbar lordosis. Skin overlying the lumbosacral area prepped and draped in aseptic fashion. Lumbar intervertebral spaces were identified by AP fluoroscopy. Skin and subcutaneous tissue overlying target site of injection anesthetized with 3 mL of 1% lidocaine. A 20-gauge 3-1/2 inch Tuohy needle advanced under fluoroscopic guidance towards [address] [address] PAIN MANAGEMENT CONSULTATION Name: OLIVIER STARR Room #: TRAVIS Gore#: [id number] Admission: 02/14/20 Attend Phys: Saurav Beal DO Discharge: Date of : 38 Report #: [id number] the epidural space using a right paramedian approach. Epidural space identified using loss of resistance to air technique. After negative aspiration for heme or cerebrospinal fluid, 1 mL of Omnipaque injected. Lumbar epidurogram confirmed using both AP and lateral fluoroscopy. After negative aspiration for heme or cerebrospinal fluid, 5 mL of a solution containing 2 mL 40 mg per mL, 80 mg total triamcinolone along with 3 mL of lidocaine 1% injected slowly. Needle retracted fdc, flushed with 1 mL of 1% lidocaine and then removed. Sterile bandage placed over injection site. No new motor deficits present in lower extremity following procedure. The patient tolerated procedure well, carefully escorted to recovery room in stable condition. No apparent complications. After meeting discharge criteria, the patient discharged home. By: 0919 Saurav Beal DO /nt
[2020-02-14 12:46] VITALS: BP 126/74
--- NOTE | 2020-02-14 12:52 | NUR ---
Pain Clinic Assessment: 1. History of Osteoarthritis: HIPS BACK History of Rheumatoid Arthritis: Not Applicable 2. Height: 6 ft. 0 in. 182.9 cm. Weight: 204.0 lb. oz. 92.534 kg. Patient's BMI: 27.7 3. Vital Signs: BP: 126/74 Pulse: 98 Resp: 18 Temp: 02 Sat: 99 ECG Mon: 4. Pain Intensity: 5-6 5. Fall Risk: Dizziness: N Needs help standing or walking: N Fallen in the last 3 months: Y Fall risk comments: 6. Patient on Blood Thinner: None 7. History of Hypertension: Y 8. Opioid Therapy greater than 6 weeks: N Opiate Contract Signed: 9. Risk Assessment Tool Provided: LOW-0 10. Functional Assessment Tool: 35 11. Recreational Drug Use: Never Drug Type: Tobacco Use: Never Smoker Tobacco Type: Amount or Packs/day: How Many Years: Alcohol Use: Yes Frequency: Special Occasions Quant: 1
== END | disposition home or self-care (01) ==
LOC: PAIN 10-17 12:14
PROVIDERS: ATTEND Anesthesiology Pain Medicine
DX: M47.27 Other spondylosis with radiculopathy, lumbosacral region (principal); M96.1 Postlaminectomy syndrome, not elsewhere classified; G89.29 Other chronic pain; I10 Essential (primary) hypertension; M19.90 Unspecified osteoarthritis, unspecified site; Z98.890 Other specified postprocedural states; Z79.899 Other long term (current) drug therapy; Z88.0 Allergy status to penicillin